=== PATIENT | female | born 1980 | race Two or more races ===

== ENCOUNTER 2016-12-14 14:16 | Emergency (ER) | payer OTHER ==
[~2016-12-14] VITALS: Ht 170.2 cm; Wt 117.0 kg
[2016-12-14 14:41] VITALS: BP 137/95
== END 2016-12-14 16:10 | disposition home or self-care (01) ==
LOC: ER 14:17
DX: H60.91 Unspecified otitis externa, right ear (principal); H57.13 Ocular pain, bilateral; F17.200 Nicotine dependence, unspecified, uncomplicated
CPT/HCPCS: 99283